=== PATIENT | female | born 1995 | race African-American/Black ===

== ENCOUNTER 2017-02-03 16:53 | Emergency (ER) | payer OTHER ==
[2017-02-03 17:23] VITALS: BP 126/73; PULSE 94; TEMP 98.2; BMI 27.8
[2017-02-03] MEDS ORDERED: AZITHROMYCIN 500 MG TABLET PO ONE (21:16)
[2017-02-03 21:31] LABS: URINE APPEARANCE SLCLOUDY; URINE BILIRUBIN NEGATIVE (NEGATIVE); URINE BLOOD NEGATIVE (NEGATIVE); URINE COLOR AMBER; URINE GLUCOSE (UA) NEGATIVE (NEGATIVE); URINE KETONE NEGATIVE (NEGATIVE); URINE LEUK ESTERASE TRACE (NEGATIVE); URINE NITRITE NEGATIVE (NEGATIVE); URINE PROTEIN NEGATIVE (NEGATIVE); URINE UROBILINOGEN NEGATIVE mg/dL (0.2-1.0)
--- NOTE | 2017-02-03 21:32 | PDOC ---
History of Present Illness - General Chief Complaint: Revisit, Lab Variance Stated Complaint: EVALUATION Time Seen by Provider: 02/03/17 20:34 History Source: Patient Exam Limitations: No Limitations - History of Present Illness Initial Comments: 02/03/17 21:31 21 yr female states she was told she has an STD and is here for treatment. Pt states she was seen at another hospital last week and they treated her for a UTI called her today and told her she has an STD but did not mention which one. Pt denies being treated for STD states she is only taking pills for her urine infection. Pt denies fever chills no abd pain no vaginal discharge. 02/07/17 10:54 Past History - Past Medical History Allergies/Adverse Reactions: Allergies Allergy/AdvReac Type Severity Reaction Status Date / Time apple Allergy Severe Hives Verified 02/03/17 17:19 avocado Allergy Severe Hives Verified 02/03/17 17:19 kiwi Allergy Severe Hives Verified 02/03/17 17:19 mikie Allergy Severe Hives Verified 02/03/17 17:19 Home Medications: Ambulatory Orders NK [No Known Home Medication] 02/03/17 Other medical history: rickets - Immunization History Immunization Up to Date: Yes - Suicide/Smoking/Psychosocial Hx Smoking History: Never smoked Hx Alcohol Use: No Drug/Substance Use Hx: No *Physical Exam - Vital Signs Last Vital Signs Temp Pulse Resp BP Pulse Ox 98.2 F 94 H 20 126/73 100 02/03/17 17:19 02/03/17 17:19 02/03/17 17:19 02/03/17 17:19 02/03/17 17:19 - Physical Exam General Appearance: Yes: Nourished, Appropriately Dressed HEENT: positive: EOMI, AMELIE Neck: positive: Supple Respiratory/Chest: positive: Lungs Clear, Normal Breath Sounds Cardiovascular: positive: Regular Rhythm, Regular Rate Gastrointestinal/Abdominal: positive: Normal Bowel Sounds, Soft. 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 Pt has no fever no abd pain . will check urine, GC/chlamydia. Pt states she had HIV test in 08/26 it was negative. *DC/Admit/Observation/Transfer Diagnosis at time of Disposition: Possible exposure to STD - Discharge Dispostion Disposition: HOME Condition at time of disposition: Good - Referrals Referrals: Manuelito Coronado [Primary Care Provider] - - Patient Instructions Additional Instructions: you have been treated for chlamydia and ghonorrhea we have tested you for this infection, we will have results in a few days please use condoms at all times during sexual activity we will call you if the cultures are positive please call the other hospital tomorrow to get your results of your STD testing no sexual acitivity for one week
[2017-02-03 21:33] LABS: URINE MUCUS RARE; URINE RBC <1 /hpf (0-3); URINE WBC 3 /hpf (3-5)
--- NOTE | 2017-02-07 11:34 | PDOC ---
Patient Follow-up (Call Back) - Post ED Follow - Up Condition at time of discharge: Good Disposition at time of original discharge: HOME - Disposition Additional Instructions/Notes: Received lab results, pt +chlamydia. Patient already treated with azithromycin and ceftriaxone. Called pt to notify, left [facility].
== END 2017-02-03 21:46 | disposition home or self-care (01) ==
LOC: JERFT 16:53
DX: Z20.2 Contact with and (suspected) exposure to infections with a predominantly sexual mode of transmission (principal)
CPT/HCPCS: 36415; 81003; 81015; 84703; 87491; 87591; 96372; 99281-25

== ENCOUNTER 2020-05-07 02:56 | Emergency (ER) | payer OTHER ==
[2020-05-07] MEDS ORDERED: ACETAMINOPHEN 325 MG TABLET (FP) PO ONE (03:06)
[2020-05-07 03:11] VITALS: BP 112/60; PULSE 90; TEMP 98.6; BMI 33.6
[2020-05-07] MEDS ORDERED: ACETAMINOPHEN 325 MG TABLET (FP) ONE ×2 (03:12→03:34)
[2020-05-07 04:31] LABS: PH,URINE >= 9.0 (5.0-8.0); URINE APPEARANCE CLEAR; URINE BILIRUBIN NEGATIVE (NEGATIVE); URINE COLOR YELLOW; URINE GLUCOSE (UA) NEGATIVE (NEGATIVE); URINE KETONE NEGATIVE (NEGATIVE); URINE LEUK ESTERASE NEGATIVE (NEGATIVE); URINE NITRITE NEGATIVE (NEGATIVE); URINE PROTEIN NEGATIVE (NEGATIVE); URINE UROBILINOGEN 0.2 mg/dL (0.2-1.0)
== END 2020-05-07 05:44 | disposition home or self-care (01) ==
LOC: JER 02:56
DX: O26.891 Other specified pregnancy related conditions, first trimester (principal); R51.9 Headache, unspecified
CPT/HCPCS: 81003; 87086; 99284-25

== ENCOUNTER 2020-05-28 22:13 | Emergency (ER) | payer OTHER ==
[2020-05-28 22:38] VITALS: BMI 32.5
[2020-05-28 23:08] LABS: THROAT:GRP A STREP ANTIGEN Negative (Negative)
[2020-05-28 23:20] VITALS: BP 112/79; PULSE 88; TEMP 98
== END 2020-05-28 23:28 | disposition home or self-care (01) ==
LOC: JER 22:13
DX: R05 Cough (principal); J02.9 Acute pharyngitis, unspecified; Z11.52 Encounter for screening for COVID-19
CPT/HCPCS: 87070; 87880; 99283-25; C9803; U0003

== ENCOUNTER 2020-10-25 11:20 | Inpatient (IN) | payer OTHER ==
[2020-10-25] MEDS ORDERED: BUTORPHANOL TARTRATE 1 MG/ML VIAL IVPB ONE (12:20)
[2020-10-25] MEDS: ELECTROLYTE-148 SOLN 1,000 ML IV SCH ×2 (12:40→18:22)
[2020-10-25] MEDS ORDERED: BUTORPHANOL TARTRATE 1 MG/ML VIAL ONE (12:43)
[2020-10-25 12:55] LABS: BASO % 0.8 % (0-2.0); EOS % 1.1 % (0-4.5); HEMATOCRIT 40.8 % (32.4-45.2); HEMOGLOBIN 13.6 GM/dL (10.7-15.3); LYMPH % 24.3 % (8-40); MCH 31.6 pg (25.7-33.7); MCHC 33.4 g/dl (32.0-36.0); MEAN CELL VOLUME 94.4 fl (80-96); MEAN PLT VOLUME 8.3 fl (7.5-11.1); MONO % 7.2 % (3.8-10.2); NEUT % 66.6 % (42.8-82.8); PLATELET COUNT 339 10^3/uL (134-434); RBC 4.32 M/mm3 (3.60-5.2); RDW 13.4 % (11.6-15.6); WHITE BLOOD COUNT 14.6 K/mm3 (4.0-10.0)
[2020-10-25 13:03] LABS: INR 0.91 (0.83-1.09)
[2020-10-25 13:05] LABS: ACTIVATED PTT 26.9 SECONDS (25.2-36.5)
[2020-10-25 13:26] LABS: ALBUMIN 2.8 g/dl (3.4-5.0); BLOOD UREA NITROGEN 8.9 mg/dL (7-18)
[2020-10-25 13:30] LABS: CREATININE 0.5 mg/dL (0.55-1.3)
[2020-10-25 13:31] LABS: BILIRUBIN,TOTAL 0.4 mg/dL (0.2-1); TOT PROT 6.7 g/dl (6.4-8.2)
[2020-10-25] MEDS ORDERED: FENTANYL/BUPIVACAINE/NS/PF - PCEA - 50 ML DISP.SYRIN EP ONE ×3 (14:50→23:49)
[2020-10-25] MEDS ORDERED: BUPIVACAINE HCL/PF 0.25% (2.5MG/ML) 10 ML VIAL ONE ×4 (15:06→22:43)
[2020-10-25 15:13] VITALS: BMI 38.9
[2020-10-25] MEDS ORDERED: NALOXONE HCL 0.4 MG/ML VIAL IVPUSH PRN (17:21)
[2020-10-25] MEDS ORDERED: FENTANYL/BUPIVACAINE/NS/PF - PCEA - 50 ML DISP.SYRIN EP SCH (17:30)
[2020-10-25] MEDS ORDERED: OXYTOCIN 30 UNITS in 0.9% NS 30 UNIT/500 ML INFUS.BAG IVPB SCH (18:00)
[2020-10-25] MEDS ORDERED: OXYTOCIN 30 UNITS in 0.9% NS 30 UNIT/500 ML INFUS.BAG IVPB ONE (18:13)
[2020-10-25 20:39] LABS: COCAINE, UR NEGATIVE (NEGATIVE); URINE BARBITURATES NEGATIVE (NEGATIVE); URINE BENZODIAZEPINES NEGATIVE (NEGATIVE)
[2020-10-25 20:40] LABS: METHADONE, UR NEGATIVE (NEGATIVE); OPIATES, URI NEGATIVE (NEGATIVE); PHENCYCLIDINE,URINE NEGATIVE (NEGATIVE)
[2020-10-25 20:51] LABS: URINE AMPHETAMINES NEGATIVE (NEGATIVE)
[2020-10-26] MEDS ORDERED: FENTANYL/BUPIVACAINE/NS/PF - PCEA - 50 ML DISP.SYRIN EP ONE (02:59)
[2020-10-26] MEDS ORDERED: OXYTOCIN 20 UNITS in 0.9% NS 20 UNIT/1,000 ML INFUS.BAG IV ONE (03:13)
[2020-10-26] MEDS ORDERED: LIDOCAINE HCL 1% PRESERVATIVE FREE - 30ML VIAL ONE (03:13)
[2020-10-26] MEDS ORDERED: METHYLERGONOVINE MALEATE 0.2 MG/1 ML AMP IM PRN (03:39)
[2020-10-26] MEDS ORDERED: WITCH HAZEL 50% (TUCKS) 40 PAD/JAR PAD TP PRN (03:39)
[2020-10-26] MEDS ORDERED: BISACODYL 10 MG SUPP.RECT RC PRN (03:39)
[2020-10-26] MEDS ORDERED: BENZOCAINE 20% 57 GM BOTTLE TP PRN (03:39)
[2020-10-26] MEDS ORDERED: BENZOCAINE 28 GM HEMORRHOIDAL OINTMENT TP PRN (03:39)
[2020-10-26] MEDS ORDERED: OXYTOCIN 20 UNITS in 0.9% NS 20 UNIT/1,000 ML INFUS.BAG IV SCH (03:45)
[2020-10-26] MEDS ORDERED: PCA PUMP NR ONE (05:02)
[2020-10-26] MEDS ORDERED: IBUPROFEN 600 MG TABLET (FP) PO ONE (05:21)
[2020-10-26] MEDS ORDERED: ACETAMINOPHEN 325 MG TABLET (FP) ONE (05:21)
[2020-10-26] MEDS: ACETAMINOPHEN 325 MG TABLET (FP) PO PRN ×3 (05:25→16:47)
[2020-10-26] MEDS: IBUPROFEN 600 MG TABLET (FP) PO PRN ×3 (05:25→16:47)
[2020-10-26] MEDS: PRENATAL VITAMINS W/ FOLIC ACID TABLET (FP) PO SCH (09:22)
[2020-10-27 07:24] LABS: BASO % 0.2 % (0-2.0); EOS % 1.2 % (0-4.5); HEMATOCRIT 33.3 % (32.4-45.2); HEMOGLOBIN 11.1 GM/dL (10.7-15.3); MCH 31.6 pg (25.7-33.7); MCHC 33.3 g/dl (32.0-36.0); MEAN CELL VOLUME 94.8 fl (80-96); MEAN PLT VOLUME 7.8 fl (7.5-11.1); MONO % 8.2 % (3.8-10.2); NEUT % 69.4 % (42.8-82.8); PLATELET COUNT 233 10^3/uL (134-434); RBC 3.51 M/mm3 (3.60-5.2); WHITE BLOOD COUNT 15.1 K/mm3 (4.0-10.0)
[2020-10-27] MEDS: IBUPROFEN 600 MG TABLET (FP) PO PRN ×2 (08:12→19:44)
[2020-10-27] MEDS: ACETAMINOPHEN 325 MG TABLET (FP) PO PRN ×2 (08:13→19:44)
[2020-10-27] MEDS: PRENATAL VITAMINS W/ FOLIC ACID TABLET (FP) PO SCH (10:00)
[2020-10-27] MEDS ORDERED: SENNOSIDES/DOCUSATE COMBO (SENNA PLUS) TABLET (UD) PO PRN (22:00)
[2020-10-28] MEDS: IBUPROFEN 600 MG TABLET (FP) PO PRN ×2 (01:41→09:05)
[2020-10-28] MEDS: ACETAMINOPHEN 325 MG TABLET (FP) PO PRN (01:41)
[2020-10-28 08:30] VITALS: BP 127/65; PULSE 81; TEMP 97.7
[2020-10-28] MEDS: PRENATAL VITAMINS W/ FOLIC ACID TABLET (FP) PO SCH (09:05)
[2020-10-30 08:41] LABS: POC NITRAZINE POS
== END 2020-10-28 13:00 | disposition home or self-care (01) | DRG 560 ==
LOC: JDEL 11:20 → JLDR 12:10 → J3W 10-26 05:58
PROVIDERS: ADMIT Student in an Organized Health Care Education/Training Program; ATTEND Student in an Organized Health Care Education/Training Program
PROC: 10E0XZZ Delivery of Products of Conception, External Approach (ICD-10-PCS; principal; 2020-10-26)
PROC: 10H073Z Insertion of Monitoring Electrode into Products of Conception, Via Natural or Artificial Opening (ICD-10-PCS; 2020-10-26)
DX: O42.013 Preterm premature rupture of membranes, onset of labor within 24 hours of rupture, third trimester (principal); O99.354 Diseases of the nervous system complicating childbirth; G43.909 Migraine, unspecified, not intractable, without status migrainosus; Z3A.36 36 weeks gestation of pregnancy; Z37.0 Single live birth; Z86.59 Personal history of other mental and behavioral disorders; Z91.410 Personal history of adult physical and sexual abuse
CPT/HCPCS: 36415; 59025; 59409; 80053; 80307; 83986-QW; 85025; 85610; 85730; 86780; 86850; 86900; 86901; C9803; U0003; U0005

== ENCOUNTER 2020-11-14 18:01 | Emergency (ER) | payer OTHER ==
[2020-11-14 18:29] VITALS: TEMP 97.7; BMI 35.9
[2020-11-14] MEDS ORDERED: LABETALOL HCL 100 MG TABLET (FP) PO ONE (20:39)
[2020-11-14 20:44] LABS: EPI CELLS 34 /uL (0-25.1); HYALINE CASTS 3 /uL (0-3.1); URINE APPEARANCE CLOUDY; URINE BACTERIA 1542 /uL (0-1359); URINE BILIRUBIN NEGATIVE (NEGATIVE); URINE COLOR YELLOW; URINE GLUCOSE (UA) NEGATIVE (NEGATIVE); URINE KETONE TRACE (NEGATIVE); URINE LEUK ESTERASE 1+ (NEGATIVE); URINE NITRITE NEGATIVE (NEGATIVE); URINE PROTEIN 1+ (NEGATIVE); URINE RBC 35 /uL (0-23.9); URINE WBC 131 /uL (0-25.8)
[2020-11-14] MEDS ORDERED: LABETALOL HCL 100 MG TABLET (FP) ONE (21:13)
[2020-11-14 21:17] VITALS: BP 152/98; PULSE 87
== END 2020-11-14 21:20 | disposition home or self-care (01) ==
LOC: JERFT 18:01
DX: N12 Tubulo-interstitial nephritis, not specified as acute or chronic (principal)
CPT/HCPCS: 81003; 87086; 99283-25

== ENCOUNTER 2020-12-12 12:10 | Emergency (ER) | payer OTHER ==
[2020-12-12 12:19] VITALS: BP 154/84; PULSE 90; TEMP 98; BMI 35.9
[2020-12-12] MEDS ORDERED: SODIUM CHLORIDE 1,000 ML IV STA (12:41)
[2020-12-12] MEDS ORDERED: ONDANSETRON 4 MG/2 ML VIAL IVPUSH ONE (12:41)
[2020-12-12] MEDS ORDERED: ACETAMINOPHEN 1000 MG/100 ML VIAL (NON FORMULARY) IVPB ONE (12:41)
[2020-12-12] MEDS ORDERED: ONDANSETRON 4 MG/2 ML VIAL ONE (13:02)
[2020-12-12] MEDS ORDERED: ACETAMINOPHEN INJECTION 100 ML IVPB ONE (13:02)
[2020-12-12 13:14] LABS: BASO % 0.4 % (0-2.0); EOS % 1.5 % (0-4.5); HEMATOCRIT 39.5 % (32.4-45.2); HEMOGLOBIN 13.8 GM/dL (10.7-15.3); LYMPH % 17.9 % (8-40); MCH 32.9 pg (25.7-33.7); MEAN PLT VOLUME 6.9 fl (7.5-11.1); MONO % 4.2 % (3.8-10.2); PLATELET COUNT 396 10^3/uL (134-434); RBC 4.21 M/mm3 (3.60-5.2); RDW 12.7 % (11.6-15.6); WHITE BLOOD COUNT 10.5 K/mm3 (4.0-10.0)
[2020-12-12 13:24] LABS: EPI CELLS 20 /uL (0-25.1); HYALINE CASTS 0 /uL (0-3.1); PH,URINE 6.5 (5.0-8.0); URINE APPEARANCE CLEAR; URINE BACTERIA 310 /uL (0-1359); URINE BILIRUBIN NEGATIVE (NEGATIVE); URINE COLOR YELLOW; URINE GLUCOSE (UA) NEGATIVE (NEGATIVE); URINE KETONE NEGATIVE (NEGATIVE); URINE LEUK ESTERASE TRACE (NEGATIVE); URINE NITRITE NEGATIVE (NEGATIVE); URINE PROTEIN NEGATIVE (NEGATIVE); URINE RBC 4 /uL (0-23.9); URINE WBC 19 /uL (0-25.8)
[2020-12-12 13:25] LABS: HCG,QUALITATIVE URINE Negative
[2020-12-12 13:36] LABS: ALBUMIN 3.6 g/dl (3.4-5.0); CALCIUM 8.9 mg/dL (8.5-10.1)
[2020-12-12 13:39] LABS: CREATININE 0.6 mg/dL (0.55-1.3)
[2020-12-12 13:41] LABS: BILIRUBIN,TOTAL 0.9 mg/dL (0.2-1); TOT PROT 7.8 g/dl (6.4-8.2)
== END 2020-12-12 15:55 | disposition home or self-care (01) ==
LOC: JERFT 12:10 → JER 12:10 → JERFT 15:55
PROC: 3E0333Z Introduction of Anti-inflammatory into Peripheral Vein, Percutaneous Approach (ICD-10-PCS; principal; 2020-12-12)
PROC: 3E033GC Introduction of Other Therapeutic Substance into Peripheral Vein, Percutaneous Approach (ICD-10-PCS; 2020-12-12)
PROC: 3E0337Z Introduction of Electrolytic and Water Balance Substance into Peripheral Vein, Percutaneous Approach (ICD-10-PCS; 2020-12-12)
DX: N10 Acute pyelonephritis (principal)
CPT/HCPCS: 36415; 76830-TC; 80053; 81003; 84703; 85025; 87086; 87186; 96361; 96374; 96375; 99284-25; J0131

== ENCOUNTER 2021-01-04 07:43 | Emergency (ER) | payer OTHER ==
[2021-01-04 08:08] VITALS: BP 118/79; PULSE 90; TEMP 98.5; BMI 35.9
== END 2021-01-04 11:00 | disposition home or self-care (01) ==
LOC: JER 07:43
DX: R09.81 Nasal congestion (principal); J02.9 Acute pharyngitis, unspecified; R05 Cough; Z11.52 Encounter for screening for COVID-19
CPT/HCPCS: 87880; 99283-25; C9803; U0003; U0005

== ENCOUNTER 2022-10-04 22:53 | Emergency (ER) | payer OTHER ==
[2022-10-04 23:01] VITALS: BP 147/81; PULSE 81; RESP 18; TEMP 97.4; BMI 33.4
[2022-10-05 01:19] LABS: HCG,QUALITATIVE URINE Negative
[2022-10-05 01:20] LABS: PH,URINE 5.5 (5.0-8.0); URINE APPEARANCE CLEAR; URINE BILIRUBIN NEGATIVE (NEGATIVE); URINE COLOR YELLOW; URINE GLUCOSE (UA) NEGATIVE (NEGATIVE); URINE KETONE NEGATIVE (NEGATIVE); URINE LEUK ESTERASE NEGATIVE (NEGATIVE); URINE NITRITE NEGATIVE (NEGATIVE); URINE PROTEIN NEGATIVE (NEGATIVE); URINE UROBILINOGEN 0.2 mg/dL (0.2-1.0)
[2022-10-05] MEDS ORDERED: IBUPROFEN 600 MG TABLET (FP) PO ONE ×2 (01:51→02:03)
[2022-10-05 02:45] LABS: THROAT:GRP A STREP DETECTED (NOTDETECTED)
== END 2022-10-05 02:04 | disposition home or self-care (01) ==
LOC: JER 22:53
DX: R51.9 Headache, unspecified (principal); R05.9 Cough, unspecified; R50.9 Fever, unspecified; J32.1 Chronic frontal sinusitis; Z20.822 Contact with and (suspected) exposure to COVID-19
CPT/HCPCS: 0241U-QW; 81003; 84703; 87651; 99283-25